=== PATIENT | male | born 1950 | race African-American/Black ===

== ENCOUNTER 2019-03-10 17:09 | Emergency (ER) | payer MEDICARE ==
[~2019-03-10] VITALS: Ht 182.9 cm; Wt 81.6 kg
[2019-03-10 17:30] VITALS: BP 156/79
--- NOTE | 2019-03-10 17:30 | NUR ---
ED Nurse Note: [facility] increase confusion for the lqst few days. pt is usually oriented x 2 per ems. pt denies any pain. pt able to give urine output. seen by solitario. blood drawn and sent to lab. will continue to monitor
--- NOTE | 2019-03-10 17:40 | NUR ---
ED Nurse Note: pt went to ct with tech
[2019-03-10] MEDS ORDERED: METAMUCIL FIBE3.4 G1 PO (17:41)
[2019-03-10] MEDS ORDERED: ATORVASTATIN CA20 MG ORAL (17:41)
[2019-03-10] MEDS ORDERED: MILK OF MA400 MG/51 ORAL (17:41)
[2019-03-10] MEDS ORDERED: MAALOX MAXIMUM355 M1 PO (17:41)
[2019-03-10] MEDS ORDERED: TIVICAY50 MG ORAL (17:41)
[2019-03-10] MEDS ORDERED: NORVASC5 MG ORAL (17:41)
[2019-03-10] MEDS ORDERED: TRUVADA1 TAB ORAL (17:41)
[2019-03-10] MEDS ORDERED: DEPAKOTE ER250 MG ORAL (17:41)
[2019-03-10] MEDS ORDERED: RISPERDAL1 MG PO (17:41)
[2019-03-10] MEDS ORDERED: FISH OIL CAP1000 MG ORAL (17:41)
[2019-03-10] MEDS ORDERED: GALANTAMINE4 MG/1 ML PO (17:41)
--- NOTE | 2019-03-10 17:50 | NUR ---
ED Nurse Note: pt went back from ct with tech
[2019-03-10 18:02] LABS: EOSINOPHILS % (AUTO) 1.1 % (0.0-3.0); HEMATOCRIT 57.7 % (42.0-52.0); LYMPHOCYTES % (AUTO) 11.2 % (20.0-45.0); MEAN CORPUSCULAR VOLUME 79 FL (80-99); MONOCYTES % (AUTO) 6.3 % (1.0-10.0); NEUTROPHILS % (AUTO) 80.4 % (45.0-75.0); PLATELET COUNT 328 K/UL (150-450); RED CELL DISTRIBUTION WIDTH 16.9 % (11.6-14.8); WHITE BLOOD COUNT 14.1 K/UL (4.8-10.8)
[2019-03-10 18:24] LABS: ANION GAP 12 mmol/L (5-15); BLOOD UREA NITROGEN 36 mg/dL (7-18); CALCIUM 9.7 MG/DL (8.5-10.1); CARBON DIOXIDE 25 MMOL/L (21-32); CHLORIDE 103 MMOL/L (98-107); CREATININE 1.8 MG/DL (0.55-1.30); POTASSIUM 4.5 MMOL/L (3.5-5.1); SODIUM 140 MMOL/L (136-145)
--- NOTE | 2019-03-10 18:30 | NUR ---
ED Nurse Note: Report received from [facility]. Evidently this patient was to be a direct admit to "HCP" (order is not clear), and sent to [facility] [place] mistake, by 's Psychiatrist, Dr. Catrachita Gaytan [phone]. Dr. Jamison has communicated with him, and plans to admit to [place] ([phone]).
[2019-03-10 18:32] LABS: ALANINE AMINOTRANSFERASE 27 U/L (12-78); ALBUMIN 4.2 G/DL (3.4-5.0); ALBUMIN/GLOBULIN RATIO 1.1 (1.0-2.7); ALKALINE PHOSPHATASE 96 U/L (46-116); ASPARTATE AMINO TRANSFERASE 33 U/L (15-37); BILIRUBIN,TOTAL 0.7 MG/DL (0.2-1.0)
[2019-03-10 18:49] LABS: HEMOGLOBIN 18.3 G/DL (14.2-18.0)
[2019-03-10 19:15] LABS: APPEARANCE,URINE CLEAR; BILIRUBIN, URINE NEGATIVE (NEGATIVE); COLOR,URINE PALE YELLOW; GLUCOSE, URINE (UA) NEGATIVE (NEGATIVE); KETONES,URINE NEGATIVE (NEGATIVE); LEUKOCYTE ESTERASE ,URINE NEGATIVE (NEGATIVE); NITRITE,URINE NEGATIVE (NEGATIVE); PH,URINE 5 (4.5-8.0); PROTEIN,URINE 1+ (NEGATIVE); UROBILINOGEN,URINE NORMAL MG/DL (0.0-1.0)
--- NOTE | 2019-03-10 19:25 | NUR ---
ED Nurse Note: RECIEVED REPORT FROM [facility] TO [facility], PT IN BED AWAKE, ALERT AND ORIENTED TO NAME ONLY, PT IS CALM AND LYING IN BED, PLACED ON CARDIAC MONITORING HE TAKES OFF OFTEN, PT DNIES PAIN,A SKING TO EAT, WILL ASK AND FEED PT, HAS PATENT SALINE LOCK IN RIGHT AC, WAITING FOR PT DISPOSITION INFO TO ADMIT OF RETURN TO FACILITY, WILL RESUME CARE ORDERED AND CONTINUE TO CLOSELY MONITOR.
[2019-03-10 19:30] VITALS: BP 151/74
[2019-03-10] MEDS ORDERED: Valproate Sodium INJ 500 MG in NS 55 ML IV ONE (20:00)
[2019-03-10] MEDS ORDERED: LORazepam Inj 2mg/ml 1ml IV ONE (20:15)
--- NOTE | 2019-03-10 20:30 | NUR ---
ED Nurse Note: PT IS BECOMING MORE AGITATED AND RESTLESS, PULLING OFF ALL ONITORING EQUIPMENT AND ATTEMPTING TO LEAVE, PT IS DISORIENTED TO PLACE, TIME AND EVENT, PT ASSISTED BACK TO BED, MEDICATED WITH ATIVAN ORDERED, MEDS EFFECTIVE, IV LINE REPLACED AND PT BACK ON MONITORING, WILL RESUME CARE ORDERD AND CLOSELY MONITOR WHILE WAITING FOR DISPOSITION.
[2019-03-10 22:00] VITALS: BP 132/70
--- NOTE | 2019-03-10 22:00 | NUR ---
ED Nurse Note: pt sleeping, arouses easily, on cardiac onitoring, no sob or labored breathing, iv site patent, nad noted, will continue to closely monitor while waiting for disposition.
--- NOTE | 2019-03-10 22:16 | Emergency Room Report ---
History of Present Illness General Chief Complaint: General Complaint Source: Medical Record Present Illness HPI 68-year-old male presents ED for evaluation. Patient brought in by EMS from facility. Patient was sent in for psychiatric evaluation. On arrival patient states he feels weak and is not remembering much. Denies any headaches chest pain or shortness of breath. Denies SI or HI. No other aggravating relieving factors. No other associated symptoms Allergies: Coded Allergies: No Known Allergies (Unverified , 03/10/19) Patient History Past Medical History: psych hx Past Surgical History: none Pertinent Family History: none Social History: Denies: smoking, alcohol use, drug use Immunizations: UTD Reviewed Nursing Documentation: PMH: Agreed; PSxH: Agreed Nursing Documentation-PMH Past Medical History: No Stated History Review of Systems All Other Systems: negative except mentioned in HPI Physical Exam Vital Signs Date Time Temp Pulse Resp B/P (MAP) Pulse Ox O2 Delivery O2 Flow Rate FiO2 03/10/19 16:55 98.1 68 16 98 Room Air 03/10/19 17:30 156/79 Sp02 EP Interpretation: reviewed, normal General Appearance: no apparent distress, alert, GCS 15, non-toxic Head: normocephalic, atraumatic Eyes: bilateral eye normal inspection, bilateral eye PERRL ENT: hearing grossly normal, normal pharynx, no angioedema, normal voice Neck: full range of motion, supple/symm/no masses Respiratory: chest non-tender, lungs clear, normal breath sounds, speaking full sentences Cardiovascular #1: regular rate, rhythm, no edema Cardiovascular #2: 2+ carotid (R), 2+ carotid (L), 2+ radial (R), 2+ radial (L) , 2+ dorsalis pedis (R), 2+ dorsalis pedis (L) Gastrointestinal: normal bowel sounds, non tender, soft, non-distended, no guarding, no rebound Rectal: deferred Genitourinary: normal inspection, no CVA tenderness Musculoskeletal: back normal, gait/station normal, normal range of motion, non- tender Neurologic: alert, oriented x3, responsive, motor strength/tone normal, sensory intact, speech normal Psychiatric: no delusions, depressed affect, anxious Reflexes: 3+ bicep (R), 3+ bicep (L), 3+ tricep (R), 3+ tricep (L), 3+ knee (R) , 3+ knee (L) Skin: normal color, no rash, warm/dry, well hydrated Lymphatic: no adenopathy Medical Decision Making Diagnostic Impression: Primary Impression: Gravely disabled Additional Impression: Renal insufficiency ER Course Hospital Course 68 yo M presents to ED for evaluation. Sent in from facility for psych eval Differential diagnoses include: Major depressive disorder, unspecified psychosis , EtOH abuse, drug abuse Clinical course Patient placed on stretcher. On one to one observation. After initial history and physical I ordered labs, U. tox, CT Head Labs- Cr 1.8, minimal luekocytosis, hb/hct stable, depakote level subtherapeutic. UA negative. Drug screen negative CT head negative Patient given IV hydration. No fever. No signs of infection. Depakote loading dose given I discussed case with Psychiatrist Dr Monroy. He evaluated this patient at facility today. Stated patient eloped and is gravely disabled. He requested that patient be transferred to facility where he has privileges. He states he was a mistake that patient was sent to [facility]. He states he has privileges at [facility]. Patient will require medical management of his renal insufficiency however would benefit from psychiatric evaluation as well. patient is stable for transfer i. I feel this is a highly complex case requiring extensive working including EKG/Rhythm strip, Xray/CT/US, Blood/urine lab work, repeat exams while in ED, and administration of strong opiates/narcotics for pain control, admission to hospital or close patient follow up. Labs Test 03/10/19 17:35 White Blood Count 14.1 K/UL (4.8-10.8) Red Blood Count 7.30 M/UL (4.70-6.10) Hemoglobin 18.3 G/DL (14.2-18.0) Hematocrit 57.7 % (42.0-52.0) Mean Corpuscular Volume 79 FL (80-99) Mean Corpuscular Hemoglobin 25.0 PG (27.0-31.0) Mean Corpuscular Hemoglobin Concent 31.6 G/DL (32.0-36.0) Red Cell Distribution Width 16.9 % (11.6-14.8) Platelet Count 328 K/UL (150-450) Mean Platelet Volume 5.2 FL (6.5-10.1) Neutrophils (%) (Auto) 80.4 % (45.0-75.0) Lymphocytes (%) (Auto) 11.2 % (20.0-45.0) Monocytes (%) (Auto) 6.3 % (1.0-10.0) Eosinophils (%) (Auto) 1.1 % (0.0-3.0) Basophils (%) (Auto) 1.0 % (0.0-2.0) Urine Color Pale yellow Urine Appearance Clear Urine pH 5 (4.5-8.0) Urine Specific Keavy 1.015 (1.005-1.035) Urine Protein 1+ (NEGATIVE) Urine Glucose (UA) Negative (NEGATIVE) Urine Ketones Negative (NEGATIVE) Urine Blood 1+ (NEGATIVE) Urine Nitrite Negative (NEGATIVE) Urine Bilirubin Negative (NEGATIVE) Urine Urobilinogen Normal MG/DL (0.0-1.0) Urine Leukocyte Esterase Negative (NEGATIVE) Urine RBC 0-2 /HPF (0 - 0) Urine WBC 0-2 /HPF (0 - 0) Urine Squamous Epithelial Cells None /LPF (NONE/OCC) Urine Bacteria None /HPF (NONE) Sodium Level 140 MMOL/L (136-145) Potassium Level 4.5 MMOL/L (3.5-5.1) Chloride Level 103 MMOL/L (98-107) Carbon Dioxide Level 25 MMOL/L (21-32) Anion Gap 12 mmol/L (5-15) Blood Urea Nitrogen 36 mg/dL (7-18) Creatinine 1.8 MG/DL (0.55-1.30) Estimat Glomerular Filtration Rate 37.7 mL/min (>60) Glucose Level 109 MG/DL (74-106) Calcium Level 9.7 MG/DL (8.5-10.1) Total Bilirubin 0.7 MG/DL (0.2-1.0) Aspartate Amino Transf (AST/SGOT) 33 U/L (15-37) Alanine Aminotransferase (ALT/SGPT) 27 U/L (12-78) Alkaline Phosphatase 96 U/L (46-116) Total Protein 8.1 G/DL (6.4-8.2) Albumin 4.2 G/DL (3.4-5.0) Globulin 3.9 g/dL Albumin/Globulin Ratio 1.1 (1.0-2.7) Salicylates Level 0.3 ug/mL (2.8-20) Urine Opiates Screen Negative (NEGATIVE) Acetaminophen Level < 2 MCG/ML (10-30) Urine Barbiturates Screen Negative (NEGATIVE) Valproic Acid (Depakene) Level 21 MCG/ML (50-100) Phencyclidine (PCP) Screen Negative (NEGATIVE) Urine Amphetamines Screen Negative (NEGATIVE) Urine Benzodiazepines Screen Negative (NEGATIVE) Urine Cocaine Screen Negative (NEGATIVE) Urine Marijuana (THC) Screen Negative (NEGATIVE) Serum Alcohol < 3 mg/dL CT/MRI/US Diagnostic Results CT/MRI/US Diagnostic Results : Imaging Test Ordered: CT head Impression no acute process Last Vital Signs Date Time Temp Pulse Resp B/P (MAP) Pulse Ox O2 Delivery O2 Flow Rate FiO2 03/10/19 19:30 98.1 86 19 151/74 99 Room Air Status: improved Disposition: XFER [facility] Condition: Serious Referrals: NON PHYSICIAN (PCP) Samuel Jamison MD March 10, 2019 22:16
--- NOTE | 2019-03-10 23:34 | NUR ---
ED Nurse Note: Spoke with Lisa at [facility] - informed that an washroom attendant will come to see the patient.
--- NOTE | 2019-03-11 00:14 | NUR ---
ED Nurse Note: Received report from [facility], patient at no distress at this time. PET Eval at bedside.
--- NOTE | 2019-03-11 00:53 | NUR ---
ED Nurse Note: ED Nurse Note: Pt to be admitted at [facility] : [address]; Room 9[address]B Dr. Catrachita Gaytan accepting. Report: [phone].
[2019-03-11 02:24] VITALS: BP 145/82
[2019-03-11 04:00] VITALS: BP 133/75
--- NOTE | 2019-03-11 10:29 | Diagnostic Imaging Report ---
Indication: Altered mental status Technique: Contiguous 5 mm thick transaxial imaging of the head obtained in a Siemens Sensation [address] scanner. Soft tissue and bone windows generated. Automatic Exposure Control was utilized. Total Dose length Product (DLP): 1432.[address] Dose Index Volume (CTDIvol): 70.38 mGy Comparison: none Findings: There is mild prominence of the ventricles, basal cisterns, and cerebral sulci consistent with atrophy. Mild, nonspecific, white matter hypoattenuation is noted throughout the brain consistent with chronic small vessel disease. There is no midline shift, edema, acute hemorrhage, mass effect, or abnormal extra-axial fluid collections. Bones and extra osseous soft tissues are unremarkable. Impression: No acute intracranial bleed, mass effect or edema. Mild atrophy of the brain. Nonspecific white matter hypoattenuation probably due to chronic small vessel disease. [facility] has communicated the preliminary results to the Emergency Department. Their findings are largely concordant with this report. The CT scanner at [facility] is accredited by the [employer] and the scans are performed using dose optimization techniques as appropriate to a performed exam including Automatic Exposure control.
== END 2019-03-11 04:00 | disposition short-term general hospital (02) ==
LOC: EDBD 17:09 → EMR 21:16
DX: F79 Unspecified intellectual disabilities (principal); N28.9 Disorder of kidney and ureter, unspecified; D72.829 Elevated white blood cell count, unspecified
CPT/HCPCS: 36415; 70450; 80053; 80164; 80307; 81003; 85025; 96361; 96365; 96375; 99284; G0480; 80329

== ENCOUNTER 2019-07-06 14:58 | Emergency (ER) | payer MEDICARE, OTHER ==
[~2019-07-06] VITALS: Ht 180.3 cm; Wt 72.6 kg
[~2019-07-06 14:58] MED LIST: ATORVASTATIN CA20 MG ORAL; DEPAKOTE ER250 MG ORAL; FISH OIL CAP1000 MG ORAL; GALANTAMINE4 MG/1 ML PO; MAALOX MAXIMUM355 M1 PO; METAMUCIL FIBE3.4 G1 PO; MILK OF MA400 MG/51 ORAL; NORVASC5 MG ORAL; RISPERDAL1 MG PO; TIVICAY50 MG ORAL; TRUVADA1 TAB ORAL
--- NOTE | 2019-07-06 15:00 | NUR ---
ED Nurse Note: Patient maribel GAUTAM from [facility] c/o increasing skin rashes, patient presents with rashes acros his chest and down to his legs, complains of no pain at this time, patient does reports of no fever and no cough, rashes are intact and not open, patient denies any pain at this time, IV started on left AC 20 gaug and labs sent down, will wait for further orders
--- NOTE | 2019-07-06 15:10 | Emergency Room Report ---
History of Present Illness General Chief Complaint: Skin Rash/Abscess Source: Patient, Medical Record Present Illness HPI Patient is a 68-year-old male brought in by BLS ambulance from group home for increased skin rash. Patient reports having rash to his lower extremities for several months and close to a year. He apparently had a increased rash to his chest over the past few days. Patient was sent to the hospital for further evaluation. Patient was noted to have some slight itchiness to the area. He denies any pain. He had prior history of HIV. Denies any recent trauma.Patient apparently had been using had a cortisone cream without any improvement.Per group home staff patient was noted to be somewhat confused at baseline. He is reportedly compliant with his medications. Per group home report patient's HIV is well controlled and the patient has been on medications consistently. Allergies: Coded Allergies: No Known Allergies (Unverified , 03/10/19) Patient History Past Medical History: see triage record Reviewed Nursing Documentation: PMH: Agreed; PSxH: Agreed Nursing Documentation-PMH Past Medical History: No History, Except For Hx Cardiac Problems: Yes - HIV+, high cholesterol Hx Hypertension: Yes History Of Psychiatric Problem: Yes - schizophrenia Review of Systems All Other Systems: limited - Review of systems: Review systems is limited by patient's being a poor historian Physical Exam Vital Signs Date Time Temp Pulse Resp B/P (MAP) Pulse Ox O2 Delivery O2 Flow Rate FiO2 07/06/19 14:52 97.9 80 20 125/77 (93) 98 Room Air Sp02 EP Interpretation: reviewed, normal General Appearance: normal inspection, well appearing, alert, GCS 15, Chronically Ill Head: atraumatic ENT: normal ENT inspection, hearing grossly normal, normal voice Neck: normal inspection, full range of motion, supple, no bony tend Respiratory: normal inspection, lungs clear, normal breath sounds, no respiratory distress, no retraction, no wheezing Cardiovascular #1: regular rate, rhythm Gastrointestinal: normal inspection, normal bowel sounds, non tender, soft, no guarding, no hernia Genitourinary: no CVA tenderness Musculoskeletal: normal inspection, back normal, normal range of motion Neurologic: normal inspection, alert, oriented x3, responsive, speech normal Psychiatric: judgement/insight normal Skin: other - multiple erythematous papules to chest. Medical Decision Making Diagnostic Impression: Primary Impression: Rash and other nonspecific skin eruption ER Course Patient present for skin rash. Differential diagnosis include but was not limited to cellulitis, mycosis fungoides, tinea among others. Because of complexity of patient's case laboratory tests and imaging studies were ordered. Patient was noted to have some erythematous rash to his chest. This appears to not be infected currently. Patient does not appear to require any antibiotics at this time. Patient was noted to have what appears to be a chronic dermatitis to his lower extremities. Patient will be given prescription for topical nystatin as well as stronger steroid cream. Patient will likely require dermatology evaluation and evaluation by primary care physician.Patient will be sent back to his nursing facility. Labs Test 07/06/19 15:15 White Blood Count 12.5 K/UL (4.8-10.8) Red Blood Count 7.07 M/UL (4.70-6.10) Hemoglobin 17.9 G/DL (14.2-18.0) Hematocrit 58.8 % (42.0-52.0) Mean Corpuscular Volume 83 FL (80-99) Mean Corpuscular Hemoglobin 25.3 PG (27.0-31.0) Mean Corpuscular Hemoglobin Concent 30.5 G/DL (32.0-36.0) Red Cell Distribution Width 16.1 % (11.6-14.8) Platelet Count 351 K/UL (150-450) Mean Platelet Volume 7.2 FL (6.5-10.1) Neutrophils (%) (Auto) 79.8 % (45.0-75.0) Lymphocytes (%) (Auto) 11.4 % (20.0-45.0) Monocytes (%) (Auto) 5.2 % (1.0-10.0) Eosinophils (%) (Auto) 2.7 % (0.0-3.0) Basophils (%) (Auto) 1.0 % (0.0-2.0) Prothrombin Time 12.0 SEC (9.30-11.50) Prothromb Time International Ratio 1.1 (0.9-1.1) Activated Partial Thromboplast Time 31 SEC (23-33) Sodium Level 141 MMOL/L (136-145) Potassium Level 4.6 MMOL/L (3.5-5.1) Chloride Level 105 MMOL/L (98-107) Carbon Dioxide Level 27 MMOL/L (21-32) Anion Gap 9 mmol/L (5-15) Blood Urea Nitrogen 22 mg/dL (7-18) Creatinine 1.9 MG/DL (0.55-1.30) Estimat Glomerular Filtration Rate 42.9 mL/min (>60) Glucose Level 89 MG/DL (74-106) Calcium Level 9.6 MG/DL (8.5-10.1) Total Bilirubin 0.7 MG/DL (0.2-1.0) Aspartate Amino Transf (AST/SGOT) 26 U/L (15-37) Alanine Aminotransferase (ALT/SGPT) 33 U/L (12-78) Alkaline Phosphatase 103 U/L (46-116) Total Protein 8.0 G/DL (6.4-8.2) Albumin 4.1 G/DL (3.4-5.0) Globulin 3.9 g/dL Albumin/Globulin Ratio 1.1 (1.0-2.7) Last Vital Signs Date Time Temp Pulse Resp B/P (MAP) Pulse Ox O2 Delivery O2 Flow Rate FiO2 07/06/19 14:52 97.9 80 20 125/77 (93) 98 Room Air Status: improved Disposition: HOME, SELF-CARE Condition: Stable Scripts Nystatin* (NYSTATIN*) 15 Gm Cream..g. 1 APPLIC TOPIC TWICE A DAY, #15 GM Prov: Calvin Cramer MD 07/06/19 Calvin Cramer MD Jul 06, 2019 15:10
[2019-07-06 15:15] VITALS: BP 125/77
[2019-07-06] MEDS ORDERED: TYLENOL EXTRA500 MG ORAL (15:18)
[2019-07-06] MEDS ORDERED: BENADRYL25 MG ORAL (15:18)
[2019-07-06] MEDS ORDERED: NORVASC5 MG ORAL (15:18)
[2019-07-06] MEDS ORDERED: COLACE100 MG ORAL (15:18)
[2019-07-06] MEDS ORDERED: CRANBERRY450 M4 PO (15:18)
[2019-07-06] MEDS ORDERED: HYDROCORTISONE-30 GM TOPIC (15:18)
[2019-07-06] MEDS ORDERED: HYDRALAZINE HCL25 M1 ORAL (15:18)
[2019-07-06] MEDS ORDERED: VIREAD300 MG ORAL (15:18)
[2019-07-06] MEDS ORDERED: MULTIVITAMINS1 EAC8 ORAL (15:18)
[2019-07-06] MEDS ORDERED: TIVICAY50 MG ORAL (15:18)
[2019-07-06 15:41] LABS: ANION GAP 9 mmol/L (5-15); BLOOD UREA NITROGEN 22 mg/dL (7-18); CALCIUM 9.6 MG/DL (8.5-10.1); CARBON DIOXIDE 27 MMOL/L (21-32); CHLORIDE 105 MMOL/L (98-107); CREATININE 1.9 MG/DL (0.55-1.30); POTASSIUM 4.6 MMOL/L (3.5-5.1); SODIUM 141 MMOL/L (136-145)
[2019-07-06 15:43] LABS: EOSINOPHILS % (AUTO) 2.7 % (0.0-3.0); HEMATOCRIT 58.8 % (42.0-52.0); HEMOGLOBIN 17.9 G/DL (14.2-18.0); LYMPHOCYTES % (AUTO) 11.4 % (20.0-45.0); MEAN CORPUSCULAR VOLUME 83 FL (80-99); MONOCYTES % (AUTO) 5.2 % (1.0-10.0); NEUTROPHILS % (AUTO) 79.8 % (45.0-75.0); PLATELET COUNT 351 K/UL (150-450); RED BLOOD COUNT 7.07 M/UL (4.70-6.10); RED CELL DISTRIBUTION WIDTH 16.1 % (11.6-14.8); WHITE BLOOD COUNT 12.5 K/UL (4.8-10.8)
[2019-07-06 15:46] LABS: ALANINE AMINOTRANSFERASE 33 U/L (12-78); ALBUMIN 4.1 G/DL (3.4-5.0); ALBUMIN/GLOBULIN RATIO 1.1 (1.0-2.7); ALKALINE PHOSPHATASE 103 U/L (46-116); ASPARTATE AMINO TRANSFERASE 26 U/L (15-37); BILIRUBIN,TOTAL 0.7 MG/DL (0.2-1.0)
[2019-07-06 15:48] LABS: INR 1.1 (0.9-1.1)
--- NOTE | 2019-07-06 16:00 | NUR ---
ED Nurse Note: Patient ambulated to the bathroom with a steady gait
[2019-07-06] MEDS ORDERED: NYSTATIN15 GM TOPIC (16:08)
--- NOTE | 2019-07-06 16:16 | NUR ---
ED Nurse Note: Spoke with Zakia from the [facility], informed that the patient will be going back
--- NOTE | 2019-07-06 18:10 | NUR ---
ED Nurse Note: Spoke with Jean Marie from [facility], states they will accept patient with a blood pressure of 160/85
--- NOTE | 2019-07-06 18:14 | NUR ---
ER DISCHARGE NOTE: Patient is cleared to be discharged per ERMD, pt is aox4, on room air, with stable vital signs. pt was given dc and prescription instructions, pt was able to verbalize understanding, pt id band and iv site removed without complications. pt is being transferred back to facility. Gave Report to Jean Marie
[2019-07-06 18:15] VITALS: BP 162/91
== END 2019-07-06 18:15 | disposition home or self-care (01) ==
LOC: EDBD 14:58 → EMR 15:14
DX: R21 Rash and other nonspecific skin eruption (principal); F20.9 Schizophrenia, unspecified; I10 Essential (primary) hypertension; B20 Human immunodeficiency virus [HIV] disease; E78.00 Pure hypercholesterolemia, unspecified
CPT/HCPCS: 36415; 80053; 85025; 85610; 85730; 86850; 86900; 86901; 99283